=== PATIENT | male | born 1980 | race Caucasian/White ===

== ENCOUNTER 2022-02-19 04:01 | Emergency (ER) | payer OTHER ==
[~2022-02-19] VITALS: Ht 170.2 cm; Wt 86.2 kg
[2022-02-19 04:01] VITALS: BP 154/99
--- NOTE | 2022-02-19 04:01 | NUR ---
PT BIB [facility], PREBOOK. TAKEN TO CHAIR
--- NOTE | 2022-02-19 04:08 | NUR ---
Dr. Breaux examining patient.
[2022-02-19] MEDS ORDERED: LIDOCAINE/EPI MPF 1%1:200000 30 ML VIAL INJ ONE (04:10)
--- NOTE | 2022-02-19 04:19 | NUR ---
PT MOVED TO ER BED 5
--- NOTE | 2022-02-19 04:29 | NUR ---
Dr. Breaux examining patient.
--- NOTE | 2022-02-19 04:31 | NUR ---
Patient has a 13 cm laceration to right knee area. Dr. Breaux applied sutures using sterile technique. Edges well approximated. Site cleansed with NSS. No bleeding noted. Pt tolerated well.
[2022-02-19] MEDS ORDERED: BACITRACIN OINT 500 UNITS/GM PKT TP ONE ×2 (04:57→05:08)
[2022-02-19] MEDS ORDERED: CEPH-588 PO (05:00)
--- NOTE | 2022-02-19 05:26 | NUR ---
Patient D/C to custody
--- NOTE | 2022-02-19 05:26 | NUR ---
The patient's care was reviewed and supervised by Martine Lewis RN.
== END 2022-02-19 05:26 ==
LOC: MED 04:01
DX: S71.111A Laceration without foreign body, right thigh, initial encounter (principal); S59.901A Unspecified injury of right elbow, initial encounter; Z02.89 Encounter for other administrative examinations; Z79.2 Long term (current) use of antibiotics; V29.9XXA Motorcycle rider (driver) (passenger) injured in unspecified traffic accident, initial encounter; Y93.89 Activity, other specified; Y92.410 Unspecified street and highway as the place of occurrence of the external cause; Y99.8 Other external cause status
CPT/HCPCS: 12004; 99283; J2001

== ENCOUNTER 2022-02-28 10:24 | Emergency (ER) | payer SELFPAY ==
[~2022-02-28] VITALS: Ht 170.2 cm; Wt 84.8 kg
[~2022-02-28 10:24] MED LIST: CEPH-588 PO
[2022-02-28 10:34] VITALS: BP 142/77
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
--- NOTE | 2022-02-28 11:07 | NUR ---
NATALIA OSCAR AT BEDSIDE FOR EVALUATION
--- NOTE | 2022-02-28 11:30 | NUR ---
Patient discharged with v/s stable. Written and verbal after care instructions FOR WOUND INFECTION given and explained. Patient verbalized understanding. Ambulatory with steady gait. All questions addressed prior to discharge. Advised to follow up with PMD. WORK NOTE PROVIDED
--- NOTE | 2022-02-28 11:31 | NUR ---
The patient's care was reviewed and supervised by Lawanda Vasquez RN.
== END 2022-02-28 11:30 | disposition home or self-care (01) ==
LOC: MED 10:24
DX: T81.49XA Infection following a procedure, other surgical site, initial encounter (principal); Z79.2 Long term (current) use of antibiotics
CPT/HCPCS: 99281

== ENCOUNTER 2022-03-07 11:18 | Emergency (ER) | payer OTHER ==
[~2022-03-07] VITALS: Ht 170.2 cm; Wt 85.3 kg
[2022-03-07 11:21] VITALS: BP 152/96
--- NOTE | 2022-03-07 11:30 | NUR ---
41 y/o male, pt presents to ed for suture removal on right upper leg. denies bleeding, discharge from site. site appears slightly red. pmh: denies nka med: denies
--- NOTE | 2022-03-07 12:31 | NUR ---
non adherent x 1 applied to pt r anterior thigh.
[2022-03-07] MEDS ORDERED: BACI1PAC6 TP (12:34)
[2022-03-07 12:41] VITALS: BP 152/96
--- NOTE | 2022-03-07 12:42 | NUR ---
Patient discharged with v/s stable. Written and verbal after care instructions given and explained. Patient alert, oriented and verbalized understanding of instructions. Ambulatory with steady gait. All questions addressed prior to discharge. ID band removed. Patient advised to follow up with PMD. Rx of bacitracin (sent) given. Patient educated on indication of medication including possible reaction and side effects. Opportunity to ask questions provided and answered.
== END 2022-03-07 12:42 | disposition home or self-care (01) ==
LOC: MED 11:18
DX: S71.111D Laceration without foreign body, right thigh, subsequent encounter (principal); Z48.02 Encounter for removal of sutures; Z79.2 Long term (current) use of antibiotics; W45.8XXD Other foreign body or object entering through skin, subsequent encounter
CPT/HCPCS: 99284